=== PATIENT | female | born 1955 | race Caucasian/White ===

== ENCOUNTER 2021-12-10 04:49 | Emergency (ER) | payer MEDICARE, BC ==
[~2021-12-10] VITALS: Ht 165.1 cm; Wt 111.8 kg
[~2021-12-10 04:49] MED LIST: BETH25TA43 PO; CELE-193 PO; DIAZ5TAB22 PO; DILT120C19; DIPH25CA83 PO; LORA-512 PO; MELA10TA PO; MONT10TA21; NITR0.4T51 SL; OXYC5CAP19 PO; POLY17PO10 PO; PRAM0.5T3 PO; TRAZ-256 PO
[2021-12-10] MEDS ORDERED: ondansetron 4mg rapidly disintigrating tab PO ONE (05:10)
[2021-12-10] MEDS ORDERED: HYDROcodone/acetaminophen 5mg/325mg tablet PO ONE (05:10)
[2021-12-10] MEDS ORDERED: morphine 4 MG/ML inj SYRINge IV ONE (05:25)
[2021-12-10] MEDS ORDERED: ondansetron/PF 4mg/2ml inj IV ONE ×2 (05:25→07:25)
[2021-12-10 05:57] LABS: BASOPHILS # (AUTO) 0.1 X10'3 (0-0.2); BASOPHILS % (AUTO) 0.7 % (0-1); EOSINOPHILS # (AUTO) 0.1 X10'3 (0-0.9); EOSINOPHILS % (AUTO) 0.9 % (0-6); HEMATOCRIT 41.9 % (35.0-45.0); HEMOGLOBIN 14.2 g/dl (12.0-16.0); LYMPHOCYTES # (AUTO) 1.5 X10'3 (1.1-4.8); LYMPHOCYTES % (AUTO) 19.6 % (21-51); MEAN CORPUSCULAR HEMOGLOBIN 30.3 PG (27.0-31.0); MEAN CORPUSCULAR VOLUME 89.2 FL (78-98); MEAN PLATELET VOLUME 7.6 FL (7.4-10.4); MONOCYTES # (AUTO) 0.7 X10'3 (0-0.9); MONOCYTES % (AUTO) 9.1 % (2-12); NEUTROPHILS # (AUTO) 5.4 X10'3 (1.8-7.7); NEUTROPHILS % (AUTO) 69.7 % (42-75); PLATELET COUNT 255 X10'3 (140-440); WHITE BLOOD COUNT 7.7 X10'3 (4.5-11.0)
[2021-12-10 06:04] LABS: ALANINE AMINOTRANSFERASE 45 U/L (12-78); ALBUMIN 3.7 G/DL (3.4-5.0); ALBUMIN/GLOBULIN RATIO 1.1 (1.1-1.5); ALKALINE PHOSPHATASE 104 IU/L (46-116); ANION GAP 7 (8-16); ASPARTATE AMINO TRANSFERASE 36 U/L (10-37); BILIRUBIN,TOTAL 0.7 MG/DL (0.1-1.0); BLOOD UREA NITROGEN 22 MG/DL (7-18); BUN/CREATININE RATIO 30.6 (6.6-38.0); CHLORIDE 106 MMOL/L (99-107); CREATININE 0.72 MG/DL (0.40-0.90); GLUCOSE 104 MG/DL (70-104); POTASSIUM 3.4 MMOL/L (3.5-5.1); SODIUM 139 MMOL/L (135-145); TOTAL CARBON DIOXIDE 26.3 MMOL/L (24-32); eGFR 81 ML/MIN
[2021-12-10] MEDS ORDERED: iohexol 300mg/ml 100ml inj. ONE (06:19)
[2021-12-10] MEDS ORDERED: normal saline 1000ml 1,000 ML IV ONE (06:30)
[2021-12-10] MEDS ORDERED: morphine 2 MG/ML inj. syringe IV ONE ×3 (06:30→10:15)
[2021-12-10 06:47] LABS: UA COLLECTION TYPE CLN CATCH MIDSTREAM
[2021-12-10 06:52] LABS: CLARITY,URINE CLEAR (Clear); COLOR,URINE YELLOW (Yellow); GLUCOSE, URINE NEGATIVE (Neg); KETONES,URINE NEGATIVE (Neg); LEUKOCYTE ESTERASE ,URINE NEGATIVE (Neg); NITRITES, URINE NEGATIVE (Neg); OCCULT BLOOD,URINE LARGE (Neg); PROTEIN,URINE NEGATIVE (Neg); UROBILINOGEN,URINE 0.2 E.U/dL (0.2-1.0)
[2021-12-10 06:56] LABS: BACTERIA,URINE NONE SEEN /HPF (Neg); CAL OXALATE CRYSTALS 2+ /HPF (NEGATIVE); RBC,URINE 20-50 /HPF (0-2); SQUAMOUS EPITHELIAL CELL,UR FEW /LPF (FEW); WBC,URINE 0-4 /HPF (0-4)
[2021-12-10] MEDS ORDERED: potassium Cl 40 mEq/0.45% sodium chloride IV soln 520ml IV ONE (08:50)
[2021-12-10] MEDS ORDERED: POTASSIUM BICARB 20meq eff tab 20 MEQ TABLET.EFF PO STA (09:10)
[2021-12-10] MEDS ORDERED: HYDR-3965 PO ×2 (09:37)
[2021-12-10] MEDS ORDERED: ACET-3080 PO ×3 (09:37→10:53)
[2021-12-10] MEDS ORDERED: MORP15TA PO ×3 (10:22→10:53)
[2021-12-10] MEDS ORDERED: ONDA8TAB13 PO ×3 (10:24→10:53)
[2021-12-10 10:37] VITALS: BP 119/54
== END 2021-12-10 10:38 | disposition home or self-care (01) ==
LOC: ER 04:50
DX: N20.0 Calculus of kidney (principal); E87.6 Hypokalemia; Z96.641 Presence of right artificial hip joint; I10 Essential (primary) hypertension; M19.90 Unspecified osteoarthritis, unspecified site; Z87.440 Personal history of urinary (tract) infections; Z98.84 Bariatric surgery status; Z72.89 Other problems related to lifestyle; Z60.2 Problems related to living alone; Z91.048 Other nonmedicinal substance allergy status; Z91.040 Latex allergy status; Z88.1 Allergy status to other antibiotic agents; Z88.2 Allergy status to sulfonamides; Z88.8 Allergy status to other drugs, medicaments and biological substances; Z79.2 Long term (current) use of antibiotics; Z79.899 Other long term (current) drug therapy
CPT/HCPCS: 36415; 74176; 80053; 81001; 85025; 96361; 96374; 96375; 96376; 99285; J2270; J2405; J7030; J3490; Q9967

== ENCOUNTER 2022-05-10 09:19 | Observation (INO) | payer MEDICARE, BC ==
[~2022-05-10] VITALS: Ht 162.6 cm; Wt 113.9 kg
[~2022-05-10 09:19] MED LIST changes: +ACET-3080 PO; +MORP15TA PO; +ONDA8TAB13 PO
[2022-05-10 09:44] LABS: BASOPHILS % (AUTO) 1.1 % (0-1); EOSINOPHILS # (AUTO) 0.4 X10'3 (0-0.9); EOSINOPHILS % (AUTO) 8.5 % (0-6); HEMATOCRIT 37.3 % (35.0-45.0); HEMOGLOBIN 12.3 g/dl (12.0-16.0); LYMPHOCYTES # (AUTO) 1.5 X10'3 (1.1-4.8); LYMPHOCYTES % (AUTO) 35.9 % (21-51); MEAN CORPUSCULAR HEMOGLOBIN 28.7 PG (27.0-31.0); MEAN CORPUSCULAR HGB CONC 33.1 g/dL (33.0-36.5); MEAN CORPUSCULAR VOLUME 86.8 FL (78-98); MONOCYTES # (AUTO) 0.5 X10'3 (0-0.9); MONOCYTES % (AUTO) 12.8 % (2-12); NEUTROPHILS # (AUTO) 1.8 X10'3 (1.8-7.7); NEUTROPHILS % (AUTO) 41.7 % (42-75); PLATELET COUNT 253 X10'3 (140-440); RED CELL DISTRIBUTION WIDTH 14.5 % (11.5-14.5); WHITE BLOOD COUNT 4.2 X10'3 (4.5-11.0)
[2022-05-10 10:00] LABS: ALANINE AMINOTRANSFERASE 22 U/L (12-78); ALBUMIN 3.1 G/DL (3.4-5.0); ALKALINE PHOSPHATASE 92 IU/L (46-116); ANION GAP 7 (8-16); ASPARTATE AMINO TRANSFERASE 31 U/L (10-37); BILIRUBIN,TOTAL 0.5 MG/DL (0.1-1.0); BLOOD UREA NITROGEN 11 MG/DL (7-18); BUN/CREATININE RATIO 20.4 (6.6-38.0); CHLORIDE 107 MMOL/L (99-107); CREATININE 0.54 MG/DL (0.40-0.90); GLUCOSE 103 MG/DL (70-104); POTASSIUM 3.9 MMOL/L (3.5-5.1); SODIUM 142 MMOL/L (135-145); TOTAL CARBON DIOXIDE 27.8 MMOL/L (24-32); TOTAL PROTEIN 6.1 G/DL (6.4-8.2); eGFR > 90 ML/MIN
[2022-05-10] MEDS ORDERED: aspirin 81mg tab.chew PO ONE (11:40)
[2022-05-10] MEDS ORDERED: magnesium 4gm in 100ml NS 100 ML IV PRN (12:15)
[2022-05-10] MEDS ORDERED: aminophylline 500mg/20ml vial IV PRN (12:15)
[2022-05-10] MEDS ORDERED: potassium Cl 20 mEq SR tablet PO PRN ×2 (12:15)
[2022-05-10] MEDS ORDERED: potassium Cl 40MEQ/1/2NS 520ml 520 ML IV PRN (12:15)
[2022-05-10] MEDS ORDERED: PERFLUTREN PROTEIN-A MICROSPHR (Optison) 0.22 MG/ML 3ML VIAL IV ONE (12:15)
[2022-05-10] MEDS ORDERED: regadenoson 0.4mg/5ml syringe IV PRN (12:15)
[2022-05-10] MEDS ORDERED: mag hydrox/Alum hydrox/simeth 30ml oral suspension PO PRN (12:15)
[2022-05-10] MEDS ORDERED: ondansetron/PF 4mg/2ml inj IV PRN (12:15)
[2022-05-10] MEDS ORDERED: metoprolol tartrate 1mg/ml inj IV PRN (12:15)
[2022-05-10] MEDS ORDERED: acetaminophen 325mg tablet PO PRN (12:15)
[2022-05-10] MEDS ORDERED: nitroGLYCERIN 0.4mg SUBLingual tab SL PRN ×2 (12:15→13:25)
[2022-05-10] MEDS ORDERED: ROSU20TA31 PO (13:06)
[2022-05-10] MEDS ORDERED: CYCL-1 PO (13:06)
[2022-05-10] MEDS ORDERED: PRAM0.5T12 PO (13:06)
[2022-05-10] MEDS ORDERED: HYDR-3717 PO (13:06)
[2022-05-10] MEDS ORDERED: DILT-88 PO (13:06)
[2022-05-10] MEDS ORDERED: NITR50CA PO (13:06)
[2022-05-10] MEDS ORDERED: CELE-85 PO (13:06)
[2022-05-10] MEDS ORDERED: GABA-534 PO (13:06)
[2022-05-10] MEDS ORDERED: OXYC1TAB17 PO (13:06)
[2022-05-10] MEDS: oxyCODONE/APAP 10/325mg tablet PO PRN ×2 (17:46→21:37)
[2022-05-10 20:00] VITALS: BP 116/69
[2022-05-10] MEDS: K and/or MAG REPLACEMENT MC SCH (20:00)
[2022-05-10] MEDS ORDERED: enoxaparin 40mg/0.4ml syringe SQ SCH (20:00)
[2022-05-10] MEDS ORDERED: hydrOXYzine 10 MG tablet PO SCH (21:00)
[2022-05-10] MEDS ORDERED: atorvastatin 20mg tablet PO SCH (21:00)
[2022-05-10] MEDS ORDERED: pramipexole 0.25mg tablet PO SCH (21:00)
[2022-05-10] MEDS ORDERED: cyclobenzaprine 10mg tablet PO SCH (21:00)
[2022-05-10] MEDS ORDERED: nitrofurantoin macrocrystal 50mg capsule PO SCH (21:00)
[2022-05-10] MEDS ORDERED: diltiazem CD 120mg capsule (once-daily) PO SCH (21:00)
[2022-05-10] MEDS: docusate sod 100mg capsule PO SCH (21:20)
[2022-05-10] MEDS: gabapentin 400mg capsule PO SCH (21:21)
[2022-05-11] VITALS (11 sets, daily range): BP systolic 102–146; BP diastolic 53–65
[2022-05-11] MEDS: oxyCODONE/APAP 10/325mg tablet PO PRN ×2 (03:06→08:19)
--- NOTE | 2022-05-11 06:48 | NUR ---
Patient in room PCU 3015. I have received report from Daniel CALDWELL and had the opportunity to ask questions and assume patient care. Patient resting in bed with eyes closed no s/s of distress noted at this time. Call light is in reach, bed is in lowest position, and bed alarm is in use.
[2022-05-11 07:04] LABS: BASOPHILS % (AUTO) 1.1 % (0-1); EOSINOPHILS # (AUTO) 0.3 X10'3 (0-0.9); EOSINOPHILS % (AUTO) 7.7 % (0-6); HEMATOCRIT 36.9 % (35.0-45.0); HEMOGLOBIN 12.7 g/dl (12.0-16.0); LYMPHOCYTES # (AUTO) 1.3 X10'3 (1.1-4.8); LYMPHOCYTES % (AUTO) 35.4 % (21-51); MEAN CORPUSCULAR HEMOGLOBIN 29.3 PG (27.0-31.0); MEAN CORPUSCULAR HGB CONC 34.3 g/dL (33.0-36.5); MEAN CORPUSCULAR VOLUME 85.6 FL (78-98); MEAN PLATELET VOLUME 7.2 FL (7.4-10.4); MONOCYTES # (AUTO) 0.4 X10'3 (0-0.9); MONOCYTES % (AUTO) 11.9 % (2-12); NEUTROPHILS # (AUTO) 1.6 X10'3 (1.8-7.7); NEUTROPHILS % (AUTO) 43.9 % (42-75); PLATELET COUNT 248 X10'3 (140-440); RED BLOOD COUNT 4.32 X10'6 (4.20-5.60); RED CELL DISTRIBUTION WIDTH 14.7 % (11.5-14.5); WHITE BLOOD COUNT 3.7 X10'3 (4.5-11.0)
[2022-05-11 07:20] LABS: ALANINE AMINOTRANSFERASE 22 U/L (12-78); ALBUMIN 3.1 G/DL (3.4-5.0); ALKALINE PHOSPHATASE 92 IU/L (46-116); ANION GAP 7 (8-16); ASPARTATE AMINO TRANSFERASE 34 U/L (10-37); BILIRUBIN,TOTAL 0.6 MG/DL (0.1-1.0); BLOOD UREA NITROGEN 11 MG/DL (7-18); BUN/CREATININE RATIO 18.6 (6.6-38.0); CALCIUM 9.5 MG/DL (8.5-10.1); CHLORIDE 106 MMOL/L (99-107); CREATININE 0.59 MG/DL (0.40-0.90); GLUCOSE 98 MG/DL (70-104); POTASSIUM 3.9 MMOL/L (3.5-5.1); SODIUM 142 MMOL/L (135-145); TOTAL CARBON DIOXIDE 29.1 MMOL/L (24-32); TOTAL PROTEIN 6.1 G/DL (6.4-8.2); eGFR > 90 ML/MIN
[2022-05-11] MEDS ORDERED: celeCOXIB 100mg capsule PO SCH (08:00)
[2022-05-11] MEDS: K and/or MAG REPLACEMENT MC SCH (08:00)
[2022-05-11] MEDS: gabapentin 400mg capsule PO SCH (08:13)
[2022-05-11] MEDS: docusate sod 100mg capsule PO SCH (08:13)
--- NOTE | 2022-05-11 13:00 | NUR ---
Pt left in private vehicle. PIV removed no s/s of pain.
== END 2022-05-11 14:21 | disposition home or self-care (01) ==
LOC: ER 09:19 → ED HOLD 12:27 → PCU 3S 19:50
PROVIDERS: ADMIT Family Medicine; ATTEND Family Medicine
DX: R07.89 Other chest pain (principal); R60.0 Localized edema; G89.29 Other chronic pain; M54.9 Dorsalgia, unspecified; M19.90 Unspecified osteoarthritis, unspecified site; I10 Essential (primary) hypertension; E78.5 Hyperlipidemia, unspecified; E66.01 Morbid (severe) obesity due to excess calories; I31.39 Other pericardial effusion (noninflammatory); Z79.899 Other long term (current) drug therapy; Z87.442 Personal history of urinary calculi; Z90.710 Acquired absence of both cervix and uterus; Z98.84 Bariatric surgery status
CPT/HCPCS: 36415; 71045; 78452; 80053; 83735; 83880; 84484; 85025; 93005; 93017; 93306; 96372; 99285; A9500; G0378; J1650; J2785